=== PATIENT | female | born 1995 | race Caucasian/White ===

== ENCOUNTER 2018-06-29 02:55 | Observation (INO) | payer BC, MEDICAID, OTHER ==
[2018-06-29] MEDS: NORMAL SALINE 1,000 ML IV PRN ×4 (03:26→08:56)
[2018-06-29 03:40] LABS: Hematocrit 36.7 % (37.0-47.0); Hemoglobin 12.2 gm/dL (12.5-16.0); Mean Cell Volume 89.3 fl (78-100); Mean Corpuscular Hemoglobin 29.7 pg (27-31); Mean Corpuscular Hgb Conc 33.2 g/dl (32-36); Mean Platelet Volume 9.1 fl (8-12.5); Neutrophil # 4.2 K/mm3 (1.3-6.0); Neutrophil % 55.7 % (42-75.0); Platelet Count 240 K/mm3 (150-450); Red Blood Count 4.11 M/mm3 (4.2-5.4); Red Cell Distribution Width 12.8 % (11.5-14.0); White Blood Count 7.6 K/mm3 (4.0-10.5)
--- NOTE | 2018-06-29 03:44 | ERNOTE ---
Medical Problem HPI - Narrative Date of Service: 06/29/18 - General Chief Complaint: Drug Overdose Time Seen by Provider: 06/29/18 03:14 Source: patient, family Exam Limitations: no limitations - Immun/Allergies/Home Medications Immunizations: IMMUNIZATION HX Immunizations Up to Date Yes History of Influenza Vaccine No Hx Pneumococcal Vaccination No Allergies/Adverse Reactions: Allergies No Known Allergies Allergy (Verified 04/08/16 16:58) Home Medications: HOME MEDICATIONS clonazePAM [Klonopin] 0.5 mg PO BID 04/08/16 [Last Taken Unknown] Sertraline HCl 100 mg PO BID 06/29/18 [Last Taken Unknown] Ziprasidone HCl 80 mg PO DAILY 06/29/18 [Last Taken Unknown] busPIRone HCL 10 mg PO BID 06/29/18 [Last Taken Unknown] - History of Present History Narrative: patient presents toed with chief complaint of overdose of klonasapam, her prescibe med, also had a couple of alcoholic drinks, states she hAS BEEN FIGHTING DEPRESSION AND WORTHLESSNES , has attempted suicide in past and had inpatient treatment Timing: constant, getting worse Severity: moderate Modifying Factors - (Improves): Present: other - nothing Modifying Factors - (Worsens): Present: rest - nothing Review of Systems - Narrative Narrative: see chief complaint, c/o profound depression - Review of Systems Constitutional: Present: See HPI, weakness, fatigue, malaise EYE: Present: no symptoms reported ENT: Present: no symptoms reported Respiratory: Present: no symptoms reported Cardiology: Present: no symptoms reported Gastrointestinal/Abdominal: Present: no symptoms reported Genitourinary: Present: no symptoms reported Musculoskeletal: Present: no symptoms reported Skin: Present: no symptoms reported Neurological: Present: no symptoms reported Endocrine: Present: no symptoms reported Hematologic/Lymphatic: Present: no symptoms reported Psych: Present: See HPI, anxiety, depressed, emotional problems All Other Systems: All systems neg except as marked Medical History (Last Updated 06/29/18 @ 03:54 by Tayler Sullivan) Bipolar 1 disorder Borderline personality disorder Major depression Surgical History: Surgical History (Last Updated 06/29/18 @ 03:54 by Tayler Sullivan) History of wisdom tooth extraction (Acute) Family History: Family History (Last Updated 06/29/18 @ 03:55 by Tayler Sullivan) Father Heart disease Mother CVA (cerebral vascular accident) Social History: Preferred Language Portuguese Do you have any pentecostalism or No cultural preference? Smoking Status Former smoker Alcohol Use occasionally Drug Use none Physical Exam - Physical Exam General Appearance: Present: moderate distress, anxious Head Exam: Present: normal inspection, no evidence of injury Eye Exam: Normal inspection: bilateral, PERRL: bilateral, EOMI: bilateral Ears, Nose, Throat: Present: normal ENT inspection, normal pharynx Neck: Present: normal inspection, nontender Respiratory: Present: no respiratory distress, normal breath sounds, no accessory muscle use, chest nontender, lungs clear Cardiovascular/Chest: Present: regular rate, rhythm, no murmur, normal peripheral pulses Peripheral Pulses: N=norm/S=strong/W=weak/B=bound/A=absent: Carotid (R): Normal, Carotid (L): Normal, Radial (R): Normal, Radial (L): Normal, Femoral (R): Normal, Femoral (L): Normal, Dorsalis-pedis (R): Normal, Dorsalis-pedis (L): Normal Gastrointestinal/Abdominal: Present: normal bowel sounds, nontender, nondistended, soft, no organomegaly Back Exam: Present: normal inspection, normal range of motion, no CVA tende rness, no vertebral tenderness Extremity Exam: Present: normal inspection, non-tender, normal range of motion, no edema Neurological Exam: Present: alert, oriented, normal mood/affect, no motor/sensory deficits Skin Exam: Present: normal color, warm/dry Lymphatic Exam: Present: no adenopathy ED Progress - Date and Time Seen: Date and Time: 06/29/18 04:15 condirtion unchanged case discussed with dr rondon ,accepted for admission, condition stable - Results and Orders Patient's Lab Results:: I have reviewed the patient's lab results. - Vital Signs Patient's Vital Signs:: I have reviewed the patient's vital signs. Vital Signs: Vital Signs 06/29/18 02:59 06/29/18 03:33 Temperature 37.5 C Pulse Rate 73 67 Respiratory Rate 16 14 Blood Pressure 145/72 H 93/66 O2 Sat by Pulse Oximetry 98 - EKG EKG: NSR - Progress/Reassessment Chief Complaint: Drug Overdose Progress:: Unchanged - Transfer of Care Expected Disposition: Admit Plan - Plan Plan: to be admitted Departure Clinical Impression: Overdose of benzodiazepine - Departure Disposition: Still a patient Condition: Serious Instructions: Benzodiazepine Overdose
[2018-06-29 03:49] LABS: Urine Bilirubin Negative (NEGATIVE); Urine Blood Negative /ul (NEGATIVE); Urine Ketone Negative (NEGATIVE); Urine Nitrite Negative (NEGATIVE); Urine Protein Negative (NEGATIVE); Urine Specific Gravity <=1.005 SP.GR. (1.005-1.010); Urine Urobilinogen Normal (NORMAL)
[2018-06-29 03:56] LABS: ALT 21 U/L (19-67); AST 14 U/L (0-48); Albumin * 3.6 gm/dl (3.4-5.0); Alkaline Phosphatase * 84 U/L (50-170); Anion Gap 8.7 mmol/L (6.8-13.8); BUN/Creatinine Ratio 10.6 (9.0-21.6); Bilirubin, Total 0.2 mg/dL (0.0-1.1); Blood Urea Nitrogen 9 mg/dL (3-23); Ca. Corrected For Albumin 8.4 mg/dL (8.4-10.2); Calcium * 8.4 mg/dL (7.9-10.9); Carbon Dioxide 29.7 mmol/L (24-32.6); Chloride 101 mmol/L (97-106); Glucose * 86 mg/dL (70-110); Potassium 3.4 mmol/L (3.4-4.6); Salicylate Less than 2.8 mg/dL (2.8-20.0); Sodium 136 mmol/L (132-142)
[2018-06-29 04:04] LABS: Urine Appearance Clear (CLEAR); Urine Bacteria None Seen; Urine Color Pale Yellow; Urine RBC None Seen /hpf (0-5); Urine WBC None Seen /hpf (0-5)
[2018-06-29 04:10] LABS: Cocaine Ur Negative (NEGATIVE); Urine Barbiturate Negative (NEGATIVE); Urine Benzodiazepines Positive (NEGATIVE); Urine Opiates Negative (NEGATIVE); Urine PCP Negative (NEGATIVE); Urine THC Negative (NEGATIVE)
[2018-06-29] MEDS ORDERED: NORMAL SALINE 1,000 ML IV PRN (04:27)
[2018-06-29] MEDS ORDERED: NORMAL SALINE 1,000 ML IV ONE ×2 (04:42→04:46)
[2018-06-29] MEDS ORDERED: NORMAL SALINE 500 ML IV ONE (04:48)
[2018-06-29] MEDS ORDERED: POLYVINYL ALCOHOL 150 DROP BTL EACHEYE PRN (07:17)
--- NOTE | 2018-06-29 09:35 | HP ---
Chief Complaint - Chief Complaint Date of Service: 06/29/18 Time of Service: 09:35 Chief Complaint: Clonazepam Overdose History of Present Illness: Jeff is a 23 yo female who was dropped off at the [facility] ER due to altered mental status and somnolence after being found at her home. She reports to taking 100 tablets of 0.5mg clonazepam in an attempt to kill herself. She reports a history of depression and suicidal actions. She has been treated inpatient at multiple facilities over the years. She is currently following with Dr. White in [place] where she also sees a counselor. She reports feeling tired, but no other noticeable symptoms. Medical History (Last Reviewed 06/29/18 @ 06:46 by Jesu Lopez RN) Bipolar 1 disorder Borderline personality disorder Major depression Surgical History: Surgical History (Last Reviewed 06/29/18 @ 06:46 by Jesu Lopez RN) History of wisdom tooth extraction (Acute) Family History: Family History (Last Reviewed 06/29/18 @ 06:46 by Jesu Lopez RN) Father Heart disease Mother CVA (cerebral vascular accident) Social History: Patient Lives/Resources With Parents Utilized Preferred Language Indonesian Do you have any taoism or No cultural preference? Smoking Status Never smoker Have you smoked in the past 12 No months Alcohol Use occasionally Drug Use none Review Of Systems (GEN) - Review of Systems Generalized/Overall Review: Present: Fatigue. Absent: Chills, Fever, Diaphoresis Respiratory: Absent: Cough, Shortness of Breath Cardiac: Absent: Chest Pain, Edema Abdominal: Absent: Nausea, Vomiting Genitourinary: Present: No Symptoms Reported Musculoskeletal: Present: No Symptoms Reported Neurological: Present: Emotional Problems Skin: Present: No Symptoms Reported Endocrine: Present: No Symptoms Reported Immunizations: IMMUNIZATION HX Immunizations Up to Date Yes History of Influenza Vaccine No Hx Pneumococcal Vaccination No Allergies/Adverse Reactions: Allergies Allergy/AdvReac Type Severity Reaction Status Date / Time No Known Allergies Allergy Verified 06/29/18 06:46 Home Medications: HOME MEDICATIONS clonazePAM [Klonopin] 0.5 mg PO BID 04/08/16 [Last Taken Unknown] Buspirone HCl 10 mg PO BID 06/29/18 [Last Taken Unknown] Sertraline HCl [Zoloft] 100 mg PO BID 06/29/18 [Last Taken Unknown] Ziprasidone HCl [Geodon] 80 mg PO DAILY 06/29/18 [Last Taken Unknown] Exam - Exam Vital Signs: Vital Signs - Last Taken Temp 36.8 C 06/29/18 09:00 Pulse 72 06/29/18 09:00 Resp 16 06/29/18 09:00 BP 98/60 06/29/18 09:00 Pulse Ox 98 06/29/18 09:00 Constitutional: Present: Alert, Oriented x3, Cooperative - sleepy ENT Exam: Present: hearing grossly normal Eye Exam: bilateral eye: normal inspection Respiratory: Present: lungs clear, normal breath sounds Cardiovascular/Chest: Present: regular rate, rhythm, no murmur Peripheral Pulses: radial (R): 2+, radial (L): 2+ Abdomen: Present: Normal bowel sounds, soft, nontender, nondistended Skin Exam: Present: normal color, warm/dry, no cyanosis Appearance: Present: appropriate appearance, appropriate insight Eye contact: Present: cooperative, good eye contact, decreased rate of speech Diagnostic Studies: Abnormal Lab Results 06/29/18 06/29/18 06/29/18 Range/Units 03:20 03:45 03:45 RBC 4.11 L (4.2-5.4) M/mm3 Hgb 12.2 L (12.5-16.0) gm/dL Hct 36.7 L (37.0-47.0) % Salicylates Less than 2.8 L (2.8-20.0) mg/dL Acetaminophen Less than 0.2 L (10.0-30.0) mcg/mL U Benzodiazepines Scrn Positive H (NEGATIVE) Laboratory Results WBC 7.6 K/mm3 (4.0-10.5) 06/29/18 03:20 RBC 4.11 M/mm3 (4.2-5.4) L 06/29/18 03:20 Hgb 12.2 gm/dL (12.5-16.0) L 06/29/18 03:20 Hct 36.7 % (37.0-47.0) L 06/29/18 03:20 MCV 89.3 fl (78-100) 06/29/18 03:20 MCH 29.7 pg (27-31) 06/29/18 03:20 MCHC 33.2 g/dl (32-36) 06/29/18 03:20 RDW 12.8 % (11.5-14.0) 06/29/18 03:20 Plt Count 240 K/mm3 (150-450) 06/29/18 03:20 MPV 9.1 fl (8-12.5) 06/29/18 03:20 Immature Gran % (Auto) 0.10 % (0.001-0.429) 06/29/18 03:20 Immature Gran # (Auto) 0.01 K/mm3 (0.000-0.0310) 06/29/18 03:20 Neutrophils % 55.7 % (42-75.0) 06/29/18 03:20 Lymphocytes % 35.7 % (20-51) 06/29/18 03:20 Monocytes % 7.1 % (0.0-9) 06/29/18 03:20 Eosinophils % 1.1 % (0.0-3.0) 06/29/18 03:20 Basophils % 0.3 % (0.0-1.0) 06/29/18 03:20 Nucleated RBC % 0.0 k/mm3 (0-1) 06/29/18 03:20 Neutrophils # 4.2 K/mm3 (1.3-6.0) 06/29/18 03:20 Lymphocytes # 2.72 k/mm3 (1.5-3.5) 06/29/18 03:20 Monocytes # 0.5 k/mm3 (0.0-1.0) 06/29/18 03:20 Eosinophils # 0.1 k/mm3 (0.0-0.7) 06/29/18 03:20 Absolute Basophils 0.0 k/mm3 (0.0-0.1) 06/29/18 03:20 Sodium 136 mmol/L (132-142) 06/29/18 03:45 Plasma Sodium 136 mmol/L (130-142) 06/29/18 03:45 Potassium 3.4 mmol/L (3.4-4.6) 06/29/18 03:45 Chloride 101 mmol/L (97-106) 06/29/18 03:45 Carbon Dioxide 29.7 mmol/L (24-32.6) 06/29/18 03:45 Anion Gap 8.7 mmol/L (6.8-13.8) 06/29/18 03:45 BUN 9 mg/dL (3-23) 06/29/18 03:45 Creatinine 0.85 mg/dL (0.4-1.4) 06/29/18 03:45 Est GFR (Non-Af Amer) 90 mL/min (60-130) D 06/29/18 03:45 BUN/Creatinine Ratio 10.6 (9.0-21.6) 06/29/18 03:45 Random Glucose 86 mg/dL (70-110) 06/29/18 03:45 Calcium 8.4 mg/dL (7.9-10.9) 06/29/18 03:45 Calcium Adj for Albumin 8.4 mg/dL (8.4-10.2) 06/29/18 03:45 Total Bilirubin 0.2 mg/dL (0.0-1.1) 06/29/18 03:45 AST 14 U/L (0-48) 06/29/18 03:45 ALT 21 U/L (19-67) 06/29/18 03:45 Alkaline Phosphatase 84 U/L (50-170) 06/29/18 03:45 Total Protein 7.0 gm/dL (6.2-8.2) 06/29/18 03:45 Albumin 3.6 gm/dl (3.4-5.0) 06/29/18 03:45 Urine Color Pale yellow 06/29/18 03:45 Urine Appearance Clear (CLEAR) 06/29/18 03:45 Urine pH 6.0 pH (5.0-7.0) 06/29/18 03:45 Ur Specific [place] <=1.005 SP.GR. (1.005-1.010) 06/29/18 03:45 Urine Protein Negative mg/dL (NEGATIVE) 06/29/18 03:45 Urine Glucose (UA) Negative mg/dL (NEGATIVE) 06/29/18 03:45 Urine Ketones Negative mg/dL (NEGATIVE) 06/29/18 03:45 Urine Blood Negative /ul (NEGATIVE) 06/29/18 03:45 Urine Nitrate Negative (NEGATIVE) 06/29/18 03:45 Urine Bilirubin Negative mg/dl (NEGATIVE) 06/29/18 03:45 Urine Urobilinogen Normal EU/dl (NORMAL) 06/29/18 03:45 Ur Leukocyte Esterase Negative /ul (NEGATIVE) 06/29/18 03:45 Urine RBC None seen /hpf (0-5) 06/29/18 03:45 Urine WBC None seen /hpf (0-5) 06/29/18 03:45 Ur Epithelial Cells None seen /hpf (0-5) 06/29/18 03:45 Urine Bacteria None seen (NONE) 06/29/18 03:45 Urine Culture Comments No culture indicated 06/29/18 03:45 Salicylates Less than 2.8 mg/dL (2.8-20.0) L 06/29/18 03:45 Urine Opiates Screen Negative (NEGATIVE) 06/29/18 03:45 Acetaminophen Less than 0.2 mcg/mL (10.0-30.0) L 06/29/18 03:45 Barbiturate Screen Negative (NEGATIVE) 06/29/18 03:45 Ur Phencyclidine Scrn Negative (NEGATIVE) 06/29/18 03:45 Urine Amphetamine Negative (NEGATIVE) 06/29/18 03:45 U Benzodiazepines Scrn Positive (NEGATIVE) H 06/29/18 03:45 Urine Cocaine Screen Negative (NEGATIVE) 06/29/18 03:45 Urine Marijuana (THC) Negative (NEGATIVE) 06/29/18 03:45 Ethyl Alcohol Less than 3.0 mg/dL (0.0-10.0) 06/29/18 03:45 Assessment/Plan - Assessment/Plan (1) Overdose of benzodiazepine Assessment: Will admit to observation for reported clonazepam dose. Patient does appear tired but I do not suspect she took 50mgs worth of clonazepam. Will monitor in [facility] in one on one. Will monitor on telemetry. Will consult psych for evaluation. Problem: Acute Qualifiers: Encounter type: initial encounter Injury intent: intentional self-harm Qualified Code(s): T42.4X2A - Poisoning by benzodiazepines, intentional self- harm, initial encounter
--- NOTE | 2018-06-29 15:11 | CONS ---
[facility] - General Date of Service: 06/29/18 Source: patient, RN/MD, RN notes reviewed Exam Limitations: no limitations - History of Present Illness Timing/Duration: getting worse Allergies/Adverse Reactions: Allergies No Known Allergies Allergy (Verified 06/29/18 06:46) Home Medications: Home Medications Medication Instructions Recorded Last Taken clonazePAM [Klonopin] 0.5 mg PO BID 04/08/16 Unknown Buspirone HCl 10 mg PO BID 06/29/18 Unknown Sertraline HCl [Zoloft] 100 mg PO BID 06/29/18 Unknown Ziprasidone HCl [Geodon] 80 mg PO DAILY 06/29/18 Unknown Medications - Medications Current Medications: Current Medications Artificial Tears (Artificial Tears) 1 drop EACHEYE Q1H PRN PRN Reason: Dry Eye(s) Stop: 07/29/18 07:18 Last Admin: 06/29/18 07:42 Dose: 1 drop Sodium Chloride (Sodium Chloride 0.9%) 1,000 mls @ 999 mls/hr IV .Q1H1M PRN PRN Reason: HYDRATION Stop: 07/29/18 03:22 Last Admin: 06/29/18 04:27 Dose: 999 mls/hr Sodium Chloride (Sodium Chloride 0.9%) 1,000 mls @ 125 mls/hr IV .Q8H PRN PRN Reason: HYDRATION Stop: 07/29/18 04:53 Last Admin: 06/29/18 08:56 Dose: 125 mls/hr Review of Systems - Review of Systems Generalized/Overall Review: Present: No Symptoms Reported Abdominal: Present: No Symptoms Reported Neurological: Present: Depressed, Emotional Problems Physical Examination - Exam Narrative: Patient states that mood had been stable with current medications up until 1-2 weeks ago. At that time, mood became more depressed and starting having suicidal ideation and self-harm ideation. States that she slept for 16 hours for 2 days in a row after the depression worsened. She states that she was feeling hopeless and called the suicide hotline and it didn't help so took "100 Clonazepam" with alcohol in a suicide attempt but then states that it was not intentional because she was dissociating at the time. Has not slept since being admitted to [facility] and her symptoms do not support taking this amount of benzodiazepine. Her alcohol level was also negative. Patient states that she does not feel that her therapist is helping and is not seeing her but every 2 months. Feels that psychiatrist is helpful but hasn't seen him for several months. States that she should have a follow up appointment scheduled with him soon. Recommend that she call her psychiatrist if she feels that medications are ineffective as well as the suicide hotline. Is unsure of doses of medications that she takes. She denies any suicidal thoughts, plan or intent. Does endorse some thoughts of cutting when stressed, discussed ways to cope with these thoughts and encouraged her to establish with a different counselor since she is not satisfied with current counselor. She states that she does not do well in an inpatient setting and is resistant to seeing a counselor at [facility] since she saw one woman there and did not like her. Is cleared for discharge from psychiatry, to follow up with Dr. White at [facility]. Vital Signs: Vital Signs - Last Taken Temp 36.7 C 06/29/18 12:56 Pulse 72 06/29/18 12:56 Resp 14 06/29/18 12:56 BP 86/48 L 06/29/18 12:56 Pulse Ox 99 06/29/18 12:56 O2 Oxygen Delivery Method Room Air Constitutional: Present: Alert, Oriented x3, Cooperative Appearance: Present: appropriate appearance, appropriate insight Eye contact: Present: cooperative, good eye contact Thoughts: Present: normal thought pattern - Results and Findings: Lab/Microbiology results last 24 hrs: Abnormal/Pending Laboratory Last 24 HRS 06/29/18 06/29/18 06/29/18 03:45 03:45 03:20 RBC 4.11 L Hgb 12.2 L Hct 36.7 L Salicylates Less than 2.8 L Acetaminophen Less than 0.2 L U Benzodiazepines Scrn Positive H - Assessments/Findings (1) Overdose of benzodiazepine Problem: Acute
[2018-06-29 16:21] VITALS: BP 104/65
--- NOTE | 2018-06-29 16:27 | DS ---
(1) Overdose of benzodiazepine Problem: Acute Qualifiers: Encounter type: initial encounter Injury intent: intentional self-harm Qualified Code(s): T42.4X2A - Poisoning by benzodiazepines, intentional self- harm, initial encounter (2) Depression Problem: Acute Qualifiers: Depression Type: major depressive disorder Major depression recurrence: single episode Active/Remission status: currently active Major depression episode severity: severe Psychotic features: without psychotic features Qualified Code(s): F32.2 - Major depressive disorder, single episode, severe without psychotic features Description of Stay: Jeff is a 23 yo female that overdosed on reportedly 100 tablets of 0.5mg Clonazepam. She was drowsy and had a mental fog but was otherwise medically sound. She had no respiratory depression. She was monitored through the day and mentation improved. She was evaluated by psychiatry and is felt to be ok for home discharge. She will follow up with her psychiatrist Dr. Otto and find a new counselor. There will be no medication changes. Procedures Performed: none Results and Findings: Lab Pending Results 06/29/18 03:20: WBC 7.6, RBC 4.11 L, Hgb 12.2 L, Hct 36.7 L, MCV 89.3, MCH 29.7, MCHC 33.2, RDW 12.8, Plt Count 240, MPV 9.1, Immature Gran % (Auto) 0.10, Immature Gran # (Auto) 0.01, Neutrophils % 55.7, Lymphocytes % 35.7, Monocytes % 7.1, Eosinophils % 1.1, Basophils % 0.3, Nucleated RBC % 0.0, Neutrophils # 4.2, Lymphocytes # 2.72, Monocytes # 0.5, Eosinophils # 0.1, Absolute Basophils 0.0 06/29/18 03:45: Sodium 136, Plasma Sodium 136, Potassium 3.4, Chloride 101, Carbon Dioxide 29.7, Anion Gap 8.7, BUN 9, Creatinine 0.85, Est GFR (Non-Af Amer) 90 D, BUN/Creatinine Ratio 10.6, Random Glucose 86, Calcium 8.4, Calcium Adj for Albumin 8.4, Total Bilirubin 0.2, AST 14, ALT 21, Alkaline Phosphatase 84, Total Protein 7.0, Albumin 3.6, Salicylates Less than 2.8 L, Acetaminophen L ess than 0.2 L, Ethyl Alcohol Less than 3.0 06/29/18 03:45: Urine Color Pale yellow, Urine Appearance Clear, Urine pH 6.0, Ur Specific [place] <=1.005, Urine Protein Negative, Urine Glucose (UA) Negative, Urine Ketones Negative, Urine Blood Negative, Urine Nitrate Negative, Urine Bilirubin Negative, Urine Urobilinogen Normal, Ur Leukocyte Esterase Negative, Urine RBC None seen, Urine WBC None seen, Ur Epithelial Cells None seen, Urine Bacteria None seen, Urine Culture Comments No culture indicated 06/29/18 03:45: Urine Opiates Screen Negative, Barbiturate Screen Negative, Ur Phencyclidine Scrn Negative, Urine Amphetamine Negative, U Benzodiazepines Scrn Positive H, Urine Cocaine Screen Negative, Urine Marijuana (THC) Negative Discharge Location: Home Disposition: Home self-care Condition: Good Discharge Activity: Activity as tolerated Discharge Diet: General/regular food Referrals: Ilya Kellogg DO [Primary Care Provider] - REBECCA OTTO [Non Staff Physicians] - One Week (Follow up next available for suicidal overdose) Problem Oriented Discharge Instructions to Patient/Family: Borderline Personality Disorder Additional Patient Instructions (free text): Follow up appt scheduled with Dr. Otto office at [facility]: Jul 02 @ 1045 AM. This will be a nurse visit, please let them know if you are needing to speak with Dr. Otto at that time. Keep your appt with him scheduled for FridayJul 20. Follow up appt scheduled with Ju[facility] at [facility]: FridayJul 06 @ 2pm Complete Home Medications List: Complete Home Medication List: clonazePAM [Klonopin] 0.5 mg PO BID 04/08/16 Buspirone HCl 10 mg PO BID 06/29/18 Sertraline HCl [Zoloft] 100 mg PO BID 06/29/18 Ziprasidone HCl [Geodon] 80 mg PO DAILY 06/29/18
== END 2018-06-29 16:47 | disposition home or self-care (01) ==
LOC: ER 02:55 → SCU 04:19 → INTOOBSV 04:19
PROVIDERS: ADMIT Family Medicine; ATTEND Family Medicine
DX: T42.4X2A Poisoning by benzodiazepines, intentional self-harm, initial encounter; F32.2 Major depressive disorder, single episode, severe without psychotic features; Z23 Encounter for immunization
CPT/HCPCS: 36415; 80053; 80307; 80320; 80329; 81001; 85025; 90471; 90686; 93005; 94760; 96360; 96361; 99284; G0378; G0479; G0480; G0481